=== PATIENT | female | born 1980 | race African-American/Black ===

== ENCOUNTER 2016-12-12 05:56 | Emergency (ER) | payer SELFPAY ==
--- NOTE | ~2016-12-12 | CT2 ---
[facility] A Service of [facility] RADIOLOGY TEXT RESULTS PATIENT: ANU PARK LOCATION: [facility] : 76 UNIT #: [id number] AGE: [address]: Ar Ponce MD SEX: F ORDER DR: [id number] [facility] [address] [place], [place] [address] [id number] MR#: [id number] #: [id number] NAME: ANU PARK : 1980 SEX: F STUDY DATE/TIME: 12/12/2016 8:15 UNIT: [facility] ROOM: STUDY DESCRIPTION: CT Abd and Pelv W Cont Attending Physician: Ar Ponce M.D. Ordering Physician: Fifi Vera A.P.R.N. MEDICAL IMAGING REPORT This report is preliminary unless electronic signature is present EXAM CT of the abdomen and pelvis with contrast INDICATION Right-sided abdominal pain and vomiting since yesterday. TECHNIQUE Axial CT images were obtained from the dome of the diaphragm through the symphysis pubis following administration of intravenous contrast material. This CT exam was performed with one or more of the following radiation dose reduction techniques: automatic exposure control, adjustment of mA and/or kV according to patient size, and iterative reconstruction. FINDINGS Images through the lung bases are clear. Liver is unremarkable. Gallbladder is surgically absent. Spleen, stomach and proximal small bowel are within normal limits, as is the pancreas. The kidneys are normal in appearance. There is no free fluid or adenopathy seen within the abdomen. Patient's uterus is enlarged and heterogeneous. There do appear to be uterine fibroids, within the endometrial canal. There is debris or even potentially polypoid lesions. Clinical significance is uncertain in a 35-year-old woman. Further evaluation with pelvic ultrasound is suggested. Patient is noted have air in the urinary bladder. Clinical significance is uncertain. Correlation with any recent catheterization is suggested. The bladder itself does not appear particularly thick walled and I do not see any perivesical soft tissue stranding. Patient's appendix is visualized and is within normal limits. I do not see any convincing evidence of small bowel obstruction. IMPRESSION [facility] A Service of [facility] RADIOLOGY TEXT RESULTS PATIENT: ANU PARK LOCATION: [facility] : 76 UNIT #: [id number] AGE: [address]: Ar Ponce MD SEX: F ORDER DR: 1. The appendix is visualized and is within normal limits. 2. No evidence of mechanical small bowel obstruction. 3. This patient's uterus is enlarged and heterogeneous with debris and/or potentially polypoid lesions identified within the endometrial canal. Some of these may reflect uterine fibroids, however further evaluation with pelvic ultrasound is recommended. 4. Air noted within the urinary bladder. Please correlate with any recent Catheterization. The urinary bladder is otherwise unremarkable with no wall thickening or perivesical stranding seen. 5. The gallbladder is surgically absent. 6. Also noted but mentioned in the report is some mild prominence of the common bile duct likely postcholecystectomy in nature. Dictated by... Noreen Ramos M.D. THIS IS AN ELECTRONICALLY VERIFIED REPORT Noreen Ramos M.D. at 12/13/2016 3:01 PM PRASHANT/franco TD: 12/12/2016 10:30 JOB #: [id number] MEDICAL IMAGING REPORT Page 1 of 1 COPY
[2016-12-12 06:11] LABS: URINE APPEARANCE CLOUDY; URINE BILIRUBIN NEG (NEG); URINE BLOOD NEG (NEG); URINE COLOR YELLOW; URINE GLUCOSE >1000 MG/DL (NEG); URINE KETONE TRACE (NEG); URINE LEUKOCYTE ESTERASE NEG (NEG); URINE NITRATE NEG (NEG); URINE PH 5.5 (5-8); URINE PROTEIN NEG (NEG); URINE SOURCE CLEAN CATCH; URINE SPECIFIC GRAVITY 1.045 (1.003-1.035); URINE UROBILINOGEN 0.2 MG/DL (NEG)
[2016-12-12 06:20] LABS: CULTURE INDICATED? NO
[2016-12-12 06:30] LABS: BASOPHIL# 0.1 X10e3 (0-0.3); BASOPHIL% 0.8 % (0-2.5); EOSINOPHIL% 0.5 % (0.0-7.0); HEMATOCRIT 27.5 % (35.0-45.0); HEMOGLOBIN 8.6 gm/dL (12.0-16.0); LYMPHOCYTE# 1.8 X10e3 (1.0-3.5); LYMPHOCYTE% 23.9 % (17.0-45.0); MEAN CELL VOLUME 80.9 FL (83-96); MEAN CORPUSCULAR HEMOGLOBIN 25.4 PG (28-34); MEAN CORPUSCULAR HGB CONC 31.3 g/dL (30-36); MEAN PLATELET VOLUME 7.2 FL (6.5-11.5); MONOCYTE# 0.4 X10e3 (0-1.0); MONOCYTE% 5.7 % (3.0-12.0); NEUTROPHIL# 5.2 X10e3 (1.5-7.1); NEUTROPHIL% 69.1 % (40-75); PLATELET COUNT 687 X10e3 (140-420); RED CELL DISTRIBUTION WIDTH 17.9 % (11.0-15.5); WHITE BLOOD COUNT 7.5 X10e3 (4.0-10.5)
[2016-12-12 06:31] LABS: AMPHETAMINE NEG (NEG); BARBITURATES NEG (NEG); BENZODIAZEPINES NEG (NEG); COCAINE NEG (NEG); MARIJUANA NEG (NEG); OPIATES NEG (NEG); TRICYCLIC ANTIDEPRESSANTS POS (NEG); U METHADONE NEG (NEG)
[2016-12-12 06:31] LABS: DIFF IND NO
[2016-12-12 07:17] LABS: ALBUMIN SERUM 4.4 g/dL (3.5-5.0); ALKALINE PHOSPHATASE 110 U/L (32-92); ALT (SGPT) 20 U/L (10-40); AST (SGOT) 22 U/L (10-42); BILIRUBIN,TOTAL 0.5 mg/dL (0.2-2.0); BLOOD UREA NITROGEN 7 mg/dL (9-23); BUN/CREATININE RATIO 11.66; CALCIUM SERUM 9.4 mg/dL (8.4-10.2); CARBON DIOXIDE 28 mmol/L (22-31); CHLORIDE 95 mmol/L (100-111); CREATININE SERUM 0.6 mg/dL (0.6-1.4); GLUCOSE FASTING 410 mg/dL (70-110); LIPASE 20 U/L (22-51); POTASSIUM 3.1 mmol/L (3.5-5.1); SODIUM 135 mmol/L (135-145)
[2016-12-12 07:20] LABS: BILIRUBIN, DIRECT <0.1 mg/dL (0.0-0.2); BILIRUBIN,INDIRECT 0.4 mg/dL (0.0-0.9)
== END 2016-12-12 09:46 | disposition home or self-care (01) ==
LOC: CED 05:56
PROVIDERS: Nurse Practitioner
DX: R10.31 Right lower quadrant pain (principal); E87.6 Hypokalemia; J45.909 Unspecified asthma, uncomplicated; Z87.442 Personal history of urinary calculi; Z90.49 Acquired absence of other specified parts of digestive tract; Z88.0 Allergy status to penicillin; Z91.040 Latex allergy status; Z88.8 Allergy status to other drugs, medicaments and biological substances
CPT/HCPCS: 36415; 74177; 80048; 80076; 80307; 81003; 82150; 82947; 83690; 84703; 85025; 96361; 96374; 96375; 99284; J0595; J1885; J2270; J2405; J2765; Q9967